=== PATIENT | female | born 1970 | race Caucasian/White ===

== ENCOUNTER 2016-12-15 09:07 | Emergency (ER) | payer OTHER ==
--- NOTE | 2016-12-15 09:11 | PDOC ---
History of Present Illness - General Chief Complaint: Psychiatric Stated Complaint: LIGHTHEADED ANXIETY Time Seen by Provider: 12/15/16 09:09 - History of Present Illness Initial Comments: 12/15/16 09:10 The patient is a 46 year old female with a self reported significant past medical history of anxiety who presents to the emergency department with a 30 minute history of palpatations after she was driving and started feeling lightheaded, then says she got anxious about feeling lightheaded and stopped breathing normally. She reports holding her breath and deep breathing alternatively which caused her to become more dizzy. She then panicked about not being able to immediately caul puller which exacerbated her symptoms. Following this a passerby called the ambulance whereupon she presented to the ER. Ms. Ortiz currently endorses feeling dizzy/light headed. The patient denies chest pain, shortness of breath, and headache. Denies fever, chills, nausea, vomit, diarrhea and constipation. Denies dysuria, frequency, urgency and hematuria. Allergies: NKDA Past surgical history: Breast reduction and Social history: Social drinker / smoker PMD - Dr. Rogers 12/15/16 09:25 Past History - Past Medical History Allergies/Adverse Reactions: Allergies Allergy/AdvReac Type Severity Reaction Status Date / Time No Known Allergies Allergy Verified 12/15/16 09:08 Home Medications: Ambulatory Orders NK [No Known Home Medication] 12/15/16 - Psycho/Social/Smoking Cessation Hx Anxiety: No Suicidal Ideation: No Smoking History: Current some day smoker Number of Cigarettes Smoked Daily: 4 'Breaking Loose' booklet given: 10/28/15 Hx Alcohol Use: No Drug/Substance Use Hx: No Substance Use Type: None Review of Systems - Review of Systems Comments:: 12/15/16 09:11 GENERAL/CONSTITUTIONAL: No fever or chills. No weakness. HEAD, EYES, EARS, NOSE AND THROAT: No change in vision. No ear pain or discharge. No sore throat. CARDIOVASCULAR: No chest pain or shortness of breath RESPIRATORY: No cough, wheezing, or hemoptysis. GASTROINTESTINAL: No nausea, vomiting, diarrhea or constipation. GENITOURINARY: No dysuria, frequency, or change in urination. MUSCULOSKELETAL: No joint or muscle swelling or pain. No neck or back pain. SKIN: No rash NEUROLOGIC: No headache, vertigo, loss of consciousness, or change in strength/ sensation. ENDOCRINE: No increased thirst. No abnormal weight change HEMATOLOGIC/LYMPHATIC: No anemia, easy bleeding, or history of blood clots. ALLERGIC/IMMUNOLOGIC: No hives or skin allergy. 12/15/16 09:30 *Physical Exam - Physical Exam Comments: 12/15/16 09:11 GENERAL: Awake, alert, and fully oriented, in no acute distress HEAD: No signs of trauma, normocephalic, atraumatic EYES: PERRLA, EOMI, sclera anicteric, conjunctiva clear ENT: Auricles normal inspection, hearing grossly normal, nares patent, oropharynx clear without exudates. Moist mucosa NECK: Normal ROM, supple, no lymphadenopathy, JVD, or masses LUNGS: No distress, speaks full sentences, clear to auscultation bilaterally HEART: Regular rate and rhythm, normal S1 and S2, no murmurs, rubs or gallops, peripheral pulses normal and equal bilaterally. ABDOMEN: Soft, nontender, normoactive bowel sounds. No guarding, no rebound. No masses EXTREMITIES: Normal inspection, Normal range of motion, no edema. No clubbing or cyanosis. NEUROLOGICAL: Cranial nerves II through XII grossly intact. Normal speech, normal gait, no focal sensorimotor deficits SKIN: Warm, Dry, normal turgor, no rashes or lesions noted. 12/15/16 09:44 Medical Decision Making - Medical Decision Making 12/15/16 09:44 Ms. Ortiz presents with anxiety and classic panic attack symptoms. She denies any prior hospitalization for psychiatric illness. Denies any depression or current major stressors in life. Lives with and 3 children. She has seen a psychiatrist about this many years ago and tried wellbutrin but was unable to control the symptoms. Denies any thoughts of harming self or others or suicidal ideation. Will give Xanax 250mg to control symptoms. *DC/Admit/Observation/Transfer Diagnosis at time of Disposition: Panic attack - Discharge Dispostion Disposition: HOME Condition at time of disposition: Stable - Referrals Referrals: Vandana Stone MD [Staff Physician] - - Patient Instructions Printed Discharge Instructions: DI for Panic Disorder - Attestations Physician Attestion: 12/15/16 10:41 I, Dr. Lizandro Alejandra, attest that this document has been prepared under my direction and personally reviewed by me in its entirety. I further attest, that it accurately reflects all work, treatment, procedures and medical decision -making performed by me.
[2016-12-15 09:17] VITALS: TEMP 98.5; BMI 26.5
--- NOTE | 2016-12-15 09:32 | PDOC ---
Attending Attestation - Resident Resident Name: Lizandro Alejandra - ED Attending Attestation I have performed the following: I have examined & evaluated the patient <Lizandro Alejandra - Last Filed: 12/15/16 11:08> - HPI HPI: 12/15/16 09:44 Patient became anxious while driving to work this morning. She pulled off the road to try and relax. She has a history of anxiety and panic attacks, however, is undergoing no treatment at present. She briefly saw a psychiatrist in the past for anxiety, was prescribed Wellbutrin, took it for a short period of time but did not continue. She denies any history of depression, suicidal or homicidal ideations, attempted suicide, or psychiatric hospitalizations. There is no particular stress in her life at present that seems to be precipitating her anxiety. 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 She is with 2 children at home. There is no job or home stress. There is no history of substance abuse. Physical exam is entirely negative, other than mild to moderate anxiety. She requests some medication to help her calm down, and will call a friend to accompany her home. She agrees to seek therapy as soon as possible. Return to the emergency room if symptoms worsen. - Physicial Exam PE: 12/15/16 11:27 Physical exam entirely normal except for - Medical Decision Making 12/15/16 09:49 Assessment: Chronic anxiety, panic attacks, inadequate treatment. No overt depression or suicidal ideations Plan: Anxiolytic. Refer psychiatry. Deep breathing and other relaxation techniques reviewed. Fully ambulatory and much more calm at discharge to follow- up as directed. <Brendan Foley - Last Filed: 12/15/16 11:28>
[2016-12-15] MEDS ORDERED: ALPRAZolam 0.25 MG TABLET PO ONE (09:43)
[2016-12-15] MEDS ORDERED: ALPRAZolam 0.25 MG TABLET ONE (09:46)
[2016-12-15 10:31] VITALS: BP 136/80; PULSE 90
== END 2016-12-15 11:07 | disposition home or self-care (01) ==
LOC: FER 09:07
DX: F41.0 Panic disorder [episodic paroxysmal anxiety] (principal); F17.210 Nicotine dependence, cigarettes, uncomplicated
CPT/HCPCS: 99281-25

== ENCOUNTER 2017-10-11 19:13 | Inpatient (IN) | payer OTHER ==
[2017-10-11 19:19] VITALS: BMI 24.4
--- NOTE | 2017-10-11 19:26 | PDOC ---
History of Present Illness - General History Source: Patient Exam Limitations: No Limitations - History of Present Illness Initial Comments: 10/11/17 19:58 The patient is a 47 year old female with a significant PMH of anxiety who presents to the emergency department with severe left breast cellulitis for 1 week.The patient reports that she had a breast reduction 20 years ago. She reports that since then her left breast has been infected 2 times. The patient reports that she went to urgent care 9 days ago by which she was given augmentin with no apparent relief. She reports that her symptoms continued and she returned to Urgent care 2 days ago where her antibiotics were changed to keflex. The patient reports that since then, she has noticed an increase in swelling redness and pain in her left breast. The patient denies any other symptoms. She denies any Chest pain, shortness of breath, headache and dizziness. She denies fever, chills, nausea, vomit, diarrhea, constipation or urinary complications. The patient denies any other complaints. Allergies: NKA Past surgical history: Breast reduction (20 years ago) Social history: social drinker and cigarette smoker PCP: Dr. Woo <Christina Armendariz - Last Filed: 10/11/17 20:09> <Nora Hernandez - Last Filed: 10/12/17 04:30> - General Chief Complaint: Wound Stated Complaint: CELLULITIS L BREAST Time Seen by Provider: 10/11/17 19:22 Past History <Christina Armendariz - Last Filed: 10/11/17 20:09> - Past Medical History COPD: No - Suicide/Smoking/Psychosocial Hx Smoking History: Current some day smoker Have you smoked in the past 12 months: Yes Number of Cigarettes Smoked Daily: 4 Information on smoking cessation initiated: Yes 'Breaking Loose' booklet given: 10/11/17 Hx Alcohol Use: No Drug/Substance Use Hx: No Substance Use Type: None <Nora Hernandez - Last Filed: 10/12/17 04:30> - Past Medical History Allergies/Adverse Reactions: Allergies Allergy/AdvReac Type Severity Reaction Status Date / Time No Known Allergies Allergy Verified 12/15/16 09:08 Home Medications: Ambulatory Orders Cephalexin [Keflex] 500 mg PO DAILY 10/11/17 Review of Systems - Review of Systems Able to Perform ROS?: Yes Comments:: 10/11/17 19:58 GENERAL/CONSTITUTIONAL: No fever or chills. No weakness. HEAD, EYES, EARS, NOSE AND THROAT: No change in vision. No ear pain or discharge. No sore throat. CARDIOVASCULAR: No chest pain or shortness of breath. RESPIRATORY: No cough, wheezing, or hemoptysis. GASTROINTESTINAL: No nausea, vomiting, diarrhea or constipation. GENITOURINARY: No dysuria, frequency, or change in urination. MUSCULOSKELETAL: No joint or muscle swelling or pain. No neck or back pain. SKIN: (+)severe left breast cellulitis NEUROLOGIC: No headache, vertigo, loss of consciousness, or change in strength/ sensation. ENDOCRINE: No increased thirst. No abnormal weight change. HEMATOLOGIC/LYMPHATIC: No anemia, easy bleeding, or history of blood clots. ALLERGIC/IMMUNOLOGIC: No hives or skin allergy. <Christina Armendariz - Last Filed: 10/11/17 20:09> *Physical Exam - Vital Signs Last Vital Signs Temp Pulse Resp BP Pulse Ox 98.3 F 108 H 14 107/78 100 10/11/17 19:16 10/11/17 19:16 10/11/17 19:16 10/11/17 19:16 10/11/17 19:16 - Physical Exam Comments: 10/11/17 19:59 GENERAL: Awake, alert, and fully oriented, in no acute distress HEAD: No signs of trauma EYES: PERRLA, EOMI, sclera anicteric, conjunctiva clear ENT: Auricles normal inspection, hearing grossly normal, nares patent, oropharynx clear without exudates. Moist mucosa NECK: Normal ROM, supple, no lymphadenopathy, JVD, or masses LUNGS: Breath sounds equal, clear to auscultation bilaterally. No wheezes, and no crackles HEART: Regular rate and rhythm, normal S1 and S2, no murmurs, rubs or gallops ABDOMEN: Soft, nontender, normoactive bowel sounds. No guarding, no rebound. No masses EXTREMITIES: Normal range of motion, no edema. No clubbing or cyanosis. No cords, erythema, or tenderness NEUROLOGICAL: Cranial nerves II through XII grossly intact. Normal speech, normal gait SKIN: (+) [id number] erythematous indurated carrie=dly tender are of midline inferior aspect of left breast surrounded by 3 cm border of mild erythema and tenderness. No discharge evident . mild fluctuance at base of inducted area at old suture line. No nipple damage noted. No chest wall tenderness. <Christina Armendariz - Last Filed: 10/11/17 20:09> - Vital Signs Last Vital Signs Temp Pulse Resp BP Pulse Ox 98.3 F 108 H 14 107/78 100 10/11/17 19:16 10/11/17 19:16 10/11/17 19:16 10/11/17 19:16 10/11/17 19:16 <Nora Hernandez - Last Filed: 10/12/17 04:30> ED Treatment Course - LABORATORY CBC & Chemistry Diagram: 10/11/17 20:02 10/11/17 20:02 <Christina Armendariz - Last Filed: 10/11/17 20:09> - LABORATORY CBC & Chemistry Diagram: 10/11/17 20:02 10/11/17 20:02 <Nora Hernandez - Last Filed: 10/12/17 04:30> Medical Decision Making - Medical Decision Making Documentation has been prepared under my direction and personally reviewed by me in its entirety. I attest that this documented accurately reflects all work, treatment, procedures and medical decision making performed by me. As noted above, this 47-year-old woman with a history of recurrent cellulitis in the left breast, after breast reduction surgery approximately 20 years ago presents with approximately 10 day history of infectious process in the usual area of cellulitis in the left breast. The infection appears to be progressing despite Augmentin, then Keflex course. Exam as noted. Although the patient does not have clinical or laboratory direct evidence of systemic infection, she has clearly failed outpatient oral antibiotic treatment. Vancomycin 1 g IV was administered after laboratory treatment/blood culture/ wound culture(area of old suture line swabbed) Case discussed with RAMESH Almaraz. Patient admitted, Dr. Gustafson service for further evaluation and treatment. <Nora Hernandez - Last Filed: 10/12/17 04:30> *DC/Admit/Observation/Transfer - Attestations Scribe Attestion: 10/11/17 19:59 Documentation prepared by Christina Armendariz, acting as medical service technician for Nora Hernandez MD. <Christina Armendariz - Last Filed: 10/11/17 20:09> - Discharge Dispostion Decision to Admit order: Yes <Nora Hernandez - Last Filed: 10/12/17 04:30> Diagnosis at time of Disposition: Cellulitis of left breast - Discharge Dispostion Condition at time of disposition: Stable
[2017-10-11] MEDS ORDERED: SODIUM CHLORIDE 1,000 ML IV STA (19:41)
[2017-10-11] MEDS ORDERED: KETOROLAC TROMETHAMINE 30 MG/1 ML VIAL IVPUSH ONE (19:41)
[2017-10-11] MEDS ORDERED: VANCOMYCIN 1 GRAM (PRE-DOCKED) 1,000 MG/250 ML BAG IVPB ONE (20:05)
[2017-10-11] MEDS ORDERED: KETOROLAC TROMETHAMINE 30 MG/1 ML VIAL ONE (20:11)
[2017-10-11] MEDS ORDERED: VANCOMYCIN 1,000 MG VIAL (RESTRICTED TO ID ONLY) ONE (20:12)
[2017-10-11 20:24] LABS: HCG,QUALITATIVE URINE Negative
[2017-10-11 20:26] LABS: ALBUMIN 3.6 g/dl (3.5-5.0); ALK PHOS 99 U/L (32-92); ANION GAP 6 (8-16); BILIRUBIN,TOTAL 0.1 mg/dl (0.2-1.0); BLOOD UREA NITROGEN 6 mg/dl (7-18); CHLORIDE 104 mmol/L (98-107); CO2 23 mmol/L (22-28); GLUCOSE,RANDOM 118 mg/dl (74-106); POTASSIUM 3.6 mmol/L (3.5-5.1); SGOT/AST 28 U/L (10-42); SGPT/ALT 19 U/L (10-40); SODIUM 133 mmol/L (136-145); TOT PROT 6.8 g/dl (6.4-8.3)
[2017-10-11 20:42] LABS: CREATININE < 0.8 mg/dl (0.6-1.3)
[2017-10-11 20:55] LABS: PH,URINE 6.5 (4.5-8); URINE APPEARANCE Clear; URINE BILIRUBIN Negative (NEGATIVE); URINE GLUCOSE (UA) Negative (NEGATIVE); URINE KETONE Negative (NEGATIVE); URINE NITRITE Negative (NEGATIVE); URINE PROTEIN Negative (NEGATIVE); URINE UROBILINOGEN 0.2 (0.2-1.0)
[2017-10-11 20:56] LABS: URINE BLOOD Trace-intact (NEGATIVE); URINE COLOR YELLOW; URINE LEUK ESTERASE TRACE (NEGATIVE)
[2017-10-11 21:01] LABS: BASO % 0.6 % (0-2.0); EOS % 1.9 % (0-4.5); HEMATOCRIT 36.9 % (32.4-45.2); HEMOGLOBIN 12.4 GM/dl (10.7-15.3); LYMPH % 17.1 % (8-40); MCH 32.5 pg (25.7-33.7); MCHC 33.7 g/dl (32.0-36.0); MEAN CELL VOLUME 96.2 fl (80-96); MEAN PLT VOLUME 8.7 fl (7.5-11.1); NEUT % 71.4 % (42.8-82.8); PLATELET COUNT 325 K/MM3 (134-434); RBC 3.84 M/mm3 (3.60-5.2); RDW 13.1 % (11.6-15.6); WHITE BLOOD COUNT 8.3 K/mm3 (4.0-10.8)
[2017-10-11 22:11] LABS: EPI CELLS FEW /HPF; URINE BACTERIA NONE SEEN /hpf (NEGATIVE); URINE RBC 0-3 /hpf (0-3); URINE WBC 0-3 (0-5)
[2017-10-11] MEDS ORDERED: PIPERACILLIN/TAZOB 3.375 GM 3.375 GM in DEXTROSE 5%-WATER - 50 ML IVPB ONE (22:15)
[2017-10-11] MEDS ORDERED: PIPERACILLIN/TAZOBACTAM 3.375 GM VIAL IVPB ONE (22:18)
--- NOTE | 2017-10-12 00:01 | HP ---
CHIEF COMPLAINT: cellulitis L breast PCP: Amna HISTORY OF PRESENT ILLNESS: This is a 47 year old female with a significant past medical history of breast reduction 20 years ago with subsequent L breast cellulitis x 2 episodes who presented to the ED with redness, swelling and pain to left breast. SHe was evaluated at urgent care 9 days ago and placed on augmentin. She returned 2 days ago as the cellulitis was not improving and her antibiotic was changed to keflex. She reported to the ED today as the pain and swelling have gotten worse. ER course was notable for: (1) WBC 8.3 (2) afebrile Recent Travel: pt denies PAST MEDICAL HISTORY: L breast cellulitis, anxiety PAST SURGICAL HISTORY: B/L breast reduction 20y ago Social History: Smokin cig/day Alcohol: "couple of drinks 4x per week" Drugs: pt denies Family History: mother age 63, esophageal CA, complication after surgery including MRSA father alive with dementia and parkinson's disease one brother s/p OD 3 other siblings no medical problems Allergies No Known Allergies Allergy (Verified 12/15/16 09:08) HOME MEDICATIONS: 3 Medication Instructions Recorded Cephalexin [Keflex] 500 mg PO DAILY 10/11/17 REVIEW OF SYSTEMS CONSTITUTIONAL: Absent: fever, chills, diaphoresis, generalized weakness, malaise, loss of appetite, weight change HEENT: Absent: rhinorrhea, nasal congestion, throat pain, throat swelling, difficulty swallowing, mouth swelling, ear pain, eye pain, visual changes CARDIOVASCULAR: Absent: chest pain, syncope, palpitations, irregular heart rate, lightheadedness , peripheral edema RESPIRATORY: Absent: cough, shortness of breath, dyspnea with exertion, orthopnea, wheezing, stridor, hemoptysis GASTROINTESTINAL: Absent: abdominal pain, abdominal distension, nausea, vomiting, diarrhea, constipation, melena, hematochezia GENITOURINARY: Absent: dysuria, frequency, urgency, hesitancy, hematuria, flank pain, genital pain MUSCULOSKELETAL: Absent: myalgia, arthralgia, joint swelling, back pain, neck pain SKIN: Present: L breast erythema, pain, swelling Absent: rash, itching, pallor HEMATOLOGIC/IMMUNOLOGIC: Absent: easy bleeding, easy bruising, lymphadenopathy, frequent infections ENDOCRINE: Absent: unexplained weight gain, unexplained weight loss, heat intolerance, cold intolerance NEUROLOGIC: Absent: headache, focal weakness or paresthesias, dizziness, unsteady gait, seizure, mental status changes, bladder or bowel incontinence PSYCHIATRIC: Absent: anxiety, depression, suicidal or homicidal ideation, hallucinations. PHYSICAL EXAMINATION Vital Signs - 24 hr 3 10/11/17 10/11/17 19:16 22:44 Temperature 98.3 F Pulse Rate 108 H Pulse Rate [ 87 Right Radial] Respiratory 14 14 Rate Blood Pressure 107/78 Blood Pressure 110/71 [Left Arm] O2 Sat by Pulse 100 100 Oximetry (%) GENERAL: Awake, alert, and fully oriented, in no acute distress. HEAD: Normal with no signs of trauma. EYES: Pupils equal, round and reactive to light, extraocular movements intact, sclera anicteric, conjunctiva clear. No lid lag. EARS, NOSE, THROAT: Ears normal, nares patent, oropharynx clear without exudates. Moist mucous membranes. NECK: Normal range of motion, supple without lymphadenopathy, JVD, or masses. LUNGS: Breath sounds equal, clear to auscultation bilaterally. No wheezes, and no crackles. No accessory muscle use. HEART: Regular rate and rhythm, normal S1 and S2 without murmur, rub or gallop. ABDOMEN: Soft, nontender, not distended, normoactive bowel sounds, no guarding, no rebound, no masses. No hepatomegaly or splenomegaly. MUSCULOSKELETAL: Normal range of motion at all joints. No bony deformities or tenderness. No CVA tenderness. UPPER EXTREMITIES: 2+ pulses, warm, well-perfused. No cyanosis. No clubbing. No peripheral edema. LOWER EXTREMITIES: 2+ pulses, warm, well-perfused. No calf tenderness. No peripheral edema. NEUROLOGICAL: Cranial nerves II-XII intact. Normal speech. Normal gait. PSYCHIATRIC: Cooperative. Good eye contact. Appropriate mood and affect. SKIN: Warm, dry, normal turgor, no rashes or lesions noted, normal capillary refill. L breast with erythema from 5 oclock to 8 oclock, central area fluctant , edges indurated, no discharge or open area at present. Laboratory Results - last 24 hr 3 10/11/17 10/11/17 10/11/17 20:00 20:02 20:02 WBC 8.3 RBC 3.84 Hgb 12.4 Hct 36.9 MCV 96.2 H MCH 32.5 MCHC 33.7 RDW 13.1 Plt Count 325 MPV 8.7 Neutrophils % 71.4 Lymphocytes % 17.1 Monocytes % 9.0 Eosinophils % 1.9 Basophils % 0.6 Sodium 133 L Potassium 3.6 Chloride 104 Carbon Dioxide 23 Anion Gap 6 L BUN 6 L D Creatinine < 0.8 D Creat Clearance w eGFR > 60 Random Glucose 118 H Lactic Acid Cancelled Calcium 9.0 Total Bilirubin 0.1 L D AST 28 D ALT 19 Alkaline Phosphatase 99 H D Total Protein 6.8 Albumin 3.6 Urine Color Urine Appearance Urine pH Ur Specific [place] Urine Protein Urine Glucose (UA) Urine Ketones Urine Blood Urine Nitrite Urine Bilirubin Urine Urobilinogen Ur Leukocyte Esterase Urine RBC Urine WBC Ur Epithelial Cells Urine Bacteria Urine HCG, Qual 3 10/11/17 20:02 WBC RBC Hgb Hct MCV MCH MCHC RDW Plt Count MPV Neutrophils % Lymphocytes % Monocytes % Eosinophils % Basophils % Sodium Potassium Chloride Carbon Dioxide Anion Gap BUN Creatinine Creat Clearance w eGFR Random Glucose Lactic Acid Calcium Total Bilirubin AST ALT Alkaline Phosphatase Total Protein Albumin Urine Color Yellow Urine Appearance Clear Urine pH 6.5 Ur Specific [place] <= 1.005 Urine Protein Negative Urine Glucose (UA) Negative Urine Ketones Negative Urine Blood Trace-intact H Urine Nitrite Negative Urine Bilirubin Negative Urine Urobilinogen 0.2 Ur Leukocyte Esterase Trace H Urine RBC 0-3 Urine WBC 0-3 Ur Epithelial Cells Few Urine Bacteria None seen Urine HCG, Qual Negative ASSESSMENT/PLAN: 47yF with PMH anxiety, L breast cellulitis presented to the ED with redness, pain and swelling of left breast for 11 days. Left breast cellulitis - failed outpatient management - given vanc and zosyn in the ED - cont same - ID consult - breast surgeon consult DVT PPX - heparin 5000u BID FEN - tolerating po - BMP in am - regular diet as tolerated Dispo: Pt currently requires further inpatient management of her emergent condition. Visit type - Emergency Visit Emergency Visit: Yes ED Registration Date: 10/11/17 Care time: The patient presented to the Emergency Department on the above date and was hospitalized for further evaluation of their emergent condition. - New Patient This patient is new to me today: Yes Date on this admission: 10/11/17 - Critical Care Critical Care patient: No Hospitalist Screening - Colonoscopy Questionnaire Colonoscopy Questionnaire: Colonoscopy Questionnaire - Patient: 50 - 75 years old and never had a screening colonoscopy: No History of colon or rectal polyps, or CA: No History of IBD, Crohn's disease or UC: No History of abdominal radiation therapy as a child: No - Relative: 1 with colon or rectal CA, or polyps at age 60 or younger: No Colon or rectal CA diagnosed at age 45 or younger: No Multiple relatives with colon or rectal CA: No - Outcome: Screening Result: Negative Screen
[2017-10-12] MEDS ORDERED: PIPERACILLIN/TAZOBACTAM 3.375 GM VIAL IVPB ONE (02:12)
[2017-10-12] MEDS ORDERED: PIPERACILLIN/TAZOB 3.375 GM 3.375 GM/50 ML BAG IVPB ONE (04:00)
[2017-10-12] MEDS ORDERED: KETOROLAC TROMETHAMINE 30 MG/1 ML VIAL IVPUSH ONE (04:05)
[2017-10-12] MEDS ORDERED: KETOROLAC TROMETHAMINE 30 MG/1 ML VIAL ONE (04:06)
[2017-10-12 06:59] VITALS: BP 108/63; TEMP 98.9
[2017-10-12 07:50] LABS: BASO % 0.6 % (0-2.0); EOS % 2.7 % (0-4.5); HEMATOCRIT 34.9 % (32.4-45.2); HEMOGLOBIN 11.6 GM/dl (10.7-15.3); LYMPH % 15.8 % (8-40); MCH 31.7 pg (25.7-33.7); MCHC 33.1 g/dl (32.0-36.0); MEAN CELL VOLUME 95.6 fl (80-96); MEAN PLT VOLUME 8.5 fl (7.5-11.1); MONO % 8.6 % (3.8-10.2); NEUT % 72.3 % (42.8-82.8); PLATELET COUNT 322 K/MM3 (134-434); RBC 3.65 M/mm3 (3.60-5.2); RDW 12.8 % (11.6-15.6); WHITE BLOOD COUNT 7.7 K/mm3 (4.0-10.8)
[2017-10-12 07:54] VITALS: PULSE 88
--- NOTE | 2017-10-12 08:10 | PN ---
Physical Exam: SUBJECTIVE: Patient seen and examined,ambulatory throughout nursing unit, denies any tactile fever, reports pain to left breast OBJECTIVE: Patient is a 47 y/o female with no significant history, patient has a significant surgical history of breast reduction with revision 20 years ago and left breast cellulitis. patient was admitted from the emergency department for left breast cellulitis after failing outpatient therapy. Vital Signs Period Temp Pulse Resp BP Sys/Tan Pulse Ox Last 24 Hr 98.3 F-98.9 F 79-108 14-16 107-110/63-78 100-100 GENERAL: The patient is awake, alert, and fully oriented, in no acute distress. HEAD: Normal with no signs of trauma. EYES: PERRL, extraocular movements intact, sclera anicteric, conjunctiva clear. No ptosis. ENT: Ears normal, nares patent, oropharynx clear without exudates, moist mucous membranes. NECK: Trachea midline, full range of motion, supple. LUNGS: Breath sounds equal, clear to auscultation bilaterally, no wheezes, no crackles, no accessory muscle use. HEART: Regular rate and rhythm, S1, S2 without murmur, rub or gallop. ABDOMEN: Soft, nontender, nondistended, normoactive bowel sounds, no guarding, no rebound, no hepatosplenomegaly, no masses. EXTREMITIES: 2+ pulses, warm, well-perfused, no edema. NEUROLOGICAL: Cranial nerves II through XII grossly intact. Normal speech, gait not observed. PSYCH: Normal mood, normal affect. SKIN: left breast, erythema and induraition, fluctance noted to the 5:oo position of left breast no drainage noted. Warm, dry, normal turgor, no rashes or lesions noted Laboratory Results - last 24 hr 10/11/17 10/11/17 10/11/17 20:00 20:02 20:02 WBC 8.3 RBC 3.84 Hgb 12.4 Hct 36.9 MCV 96.2 H MCH 32.5 MCHC 33.7 RDW 13.1 Plt Count 325 MPV 8.7 Neutrophils % 71.4 Lymphocytes % 17.1 Monocytes % 9.0 Eosinophils % 1.9 Basophils % 0.6 Sodium 133 L Potassium 3.6 Chloride 104 Carbon Dioxide 23 Anion Gap 6 L BUN 6 L D Creatinine < 0.8 D Creat Clearance w eGFR > 60 Random Glucose 118 H Lactic Acid Cancelled Calcium 9.0 Total Bilirubin 0.1 L D AST 28 D ALT 19 Alkaline Phosphatase 99 H D Total Protein 6.8 Albumin 3.6 Urine Color Urine Appearance Urine pH Ur Specific [place] Urine Protein Urine Glucose (UA) Urine Ketones Urine Blood Urine Nitrite Urine Bilirubin Urine Urobilinogen Ur Leukocyte Esterase Urine RBC Urine WBC Ur Epithelial Cells Urine Bacteria Urine HCG, Qual 10/11/17 10/11/17 20:02 20:18 WBC RBC Hgb Hct MCV MCH MCHC RDW Plt Count MPV Neutrophils % Lymphocytes % Monocytes % Eosinophils % Basophils % Sodium Potassium Chloride Carbon Dioxide Anion Gap BUN Creatinine Creat Clearance w eGFR Random Glucose Lactic Acid 0.6 Calcium Total Bilirubin AST ALT Alkaline Phosphatase Total Protein Albumin Urine Color Yellow Urine Appearance Clear Urine pH 6.5 Ur Specific [place] <= 1.005 Urine Protein Negative Urine Glucose (UA) Negative Urine Ketones Negative Urine Blood Trace-intact H Urine Nitrite Negative Urine Bilirubin Negative Urine Urobilinogen 0.2 Ur Leukocyte Esterase Trace H Urine RBC 0-3 Urine WBC 0-3 Ur Epithelial Cells Few Urine Bacteria None seen Urine HCG, Qual Negative Active Medications Generic Name Dose Route Start Last Admin Trade Name Freq PRN Reason Stop Dose Admin Heparin Sodium (Porcine) 5,000 unit 10/12/17 10:00 Heparin - SQ BID [facility] ASSESSMENT/PLAN: 1) Left breast cellulitis - vanc/zosyn given in ED, ultrasound of left breast ordered - case discussed with Dr Nugent breast surgeon and ID Dr Guerra at bedside - no leukocystosis noted, patient is afebrile - pending blood cultures DVT PPX - heparin 5000u BID FEN - tolerating po - regular diet as tolerated Dispo: Pt currently requires further inpatient management of her emergent condition.
[2017-10-12] MEDS ORDERED: HEPARIN NA (PORCINE) 5,000 UNITS/ML 1ML VIAL SQ SCH (10:00)
[2017-10-12 10:18] LABS: ANION GAP 6 (8-16); BLOOD UREA NITROGEN 4 mg/dl (7-18); CALCIUM 8.3 mg/dl (8.4-10.2); CHLORIDE 110 mmol/L (98-107); CO2 20 mmol/L (22-28); CREATININE 0.5 mg/dl (0.6-1.3); GLUCOSE,RANDOM 101 mg/dl (74-106); MAGNESIUM 1.8 mg/dL (1.8-2.4); PHOSPHOROUS 3.8 mg/dl (2.5-4.6); POTASSIUM 3.7 mmol/L (3.5-5.1); SODIUM 136 mmol/L (136-145)
--- NOTE | 2017-10-12 10:28 | PN ---
Progress Note (short form) - Note Progress Note: ID Consult dictated Cellulitis L breast R/O abscess Await c/s, ultrasound Continue empiric vancomycin/ zosyn
[2017-10-12] MEDS ORDERED: VANCOMYCIN 1,000 MG in DEXTROSE 5%-WATER - 250 ML IVPB SCH (10:30)
[2017-10-12] MEDS ORDERED: HEPARIN NA (PORCINE) 5,000 UNITS/ML 1ML VIAL ONE (10:35)
[2017-10-12] MEDS ORDERED: IBUPROFEN 600 MG TABLET (FP) PO ONE (11:01)
--- NOTE | 2017-10-12 11:12 | CONSULT ---
Consult Consult Specialty:: Breast Surgery Referred by:: Dr. Yin Reason for Consultation:: left breast abscess/infection - History of Present Illness Chief Complaint: Left breast infection for with pain swelling for 9 days without relief on oral antibiotics History of Present Illness: The patient is a 47 y.o. premenopausal white female with no significant PMH who has a history of a bilateral reduction mastopexy almost 20 years ago. She under went revision surgery soon after the original surgery and had a localized cellulitis which resolved spontaneously at that time. She again developed a localized cellulitis about 5 years ago at which time she supposedly saw me and that also resolved on oral antibiotics. She now has had a recurrent cellutitis of the left breast for almost 9 days and originally was seen at an urgent care center and given augmentin. She continued to have redness and swelling and went back to the urgent care center and her antibiotics were switched to bactrim and keflex. She now presented to the [place] ER with persistent redness, swelling, and pain from this left breast cellutitis. She has been afebrile. - History Source History Provided By: Patient Limitations to Obtaining History: No Limitations - Past Medical History ...LMP Comment: 3 weeks ago ...: No - Past Surgical History Additional Surgical History: Bilateral reduction mastepexy surgery 20 years ago - Alcohol/Substance Use Hx Alcohol Use: No - Smoking History Smoking history: Current some day smoker Have you smoked in the past 12 months: Yes Aproximately how many cigarettes per day: 4 Home Medications - Allergies Allergies/Adverse Reactions: Allergies Allergy/AdvReac Type Severity Reaction Status Date / Time No Known Allergies Allergy Verified 12/15/16 09:08 - Home Medications Home Medications: Ambulatory Orders Cephalexin [Keflex] 500 mg PO DAILY 10/11/17 Family Disease History - Family Disease History Other Family History: Mother from esophageal cancer at age 63. Father had dementia/parkinson's Review of Systems - Review of Systems Constitutional: reports: No Symptoms Eyes: reports: No Symptoms HENT: reports: No Symptoms Neck: reports: No Symptoms Cardiovascular: reports: No Symptoms Respiratory: reports: No Symptoms Gastrointestinal: reports: No Symptoms Genitourinary: reports: No Symptoms Breasts: reports: Other (left breast pain and swelling for 9 days not fully improved on oral antibiotics) Musculoskeletal: reports: No Symptoms Integumentary: reports: No Symptoms Neurological: reports: No Symptoms Endocrine: reports: No Symptoms Psychiatric: reports: No Symptoms Physical Exam Vital Signs: Vital Signs Temperature 98.9 F 10/12/17 07:37 Pulse Rate 88 10/12/17 07:37 Respiratory Rate 16 10/12/17 07:37 Blood Pressure 108/63 10/12/17 07:37 O2 Sat by Pulse Oximetry (%) 100 10/12/17 07:37 Constitutional: Yes: Well Nourished, No Distress, Calm Eyes: Yes: WNL HENT: Yes: Atraumatic, Normocephalic Neck: Yes: WNL Cardiovascular: Yes: Regular Rate and Rhythm Respiratory: Yes: Regular, CTA Bilaterally Gastrointestinal: Yes: Normal Bowel Sounds, Soft ...Rectal Exam: Yes: Deferred Breast(s): Yes: Other (Left breast with redness/tenderness on lower half with significant lower swellin just at prior inframmamary incision) Musculoskeletal: Yes: WNL Neurological: Yes: Alert, Oriented Labs: CBC, BMP 10/12/17 07:15 10/12/17 07:15 Imaging - Results Ultrasound: Other (performed bedside ultrasound using sonosite which showed abscess with debris at lower region of left breast in region of swelling and redness) Problem List - Problems (1) Breast abscess Assessment/Plan: The patient has an obvious left breast abscess not responding to oral antibiotics. She has a normal WBC at 8.3 but ultrasound shows a large abscess with debris which will not respond to simple aspiration. After informed consent , I performed an I&D of the abscess in the ER. I was able to fully drain and debride the abscess sharply with a 10 blade scapel. The cavity was fully irrigated with 50/50 peroxide/saline solution. The procedure was performed under local anesthesia with 2% local lidocaine under sterile conditions and fluid culture were sent to microbacteriology. 1/[address] into the wound. She tolerated the procedure well without difficulty. She will require daily dressing changes and the ER will arrange VNS. She can be discharge home from the ER today with follow up and VNS. She will present to the office tomorrow for her first dressing change. She will remain on Bactriem and Keflex for now. Code(s): N61 - INFLAMMATORY DISORDERS OF BREAST * DO NOT USE * Assessment/Plan Patient with acute right breast abscess not responsive to oral antibiotics. Sharp incision and drainage performed in ER with decompression of large abscess and irrigation and packing of wound. Will arrange VNS and discharge home with dressing changes. Continue oral antibiotics with Bactrim and Keflex. Follow up in my office tomorrow for wound dressing change. Visit type - Emergency Visit Emergency Visit: Yes ED Registration Date: 10/11/17 Care time: The patient presented to the Emergency Department on the above date and was hospitalized for further evaluation of their emergent condition. - New Patient This patient is new to me today: Yes Date on this admission: 10/15/17 - Critical Care Critical Care patient: No
--- NOTE | 2017-10-12 11:15 | CONS ---
INFECTIOUS DISEASE CONSULTATION DATE OF CONSULTATION: DATE OF DICTATION: 10/12/2017 The patient is a 47-year-old female who is evaluated for cellulitis of the left breast. The patient is status post breast reduction surgery approximately 20 years prior to admission. She was seen in the emergency room approximately 2 years ago with a right breast cellulitis which was treated with antibiotics. She now returns with cellulitis of the left breast. Approximately 1 week ago, she developed worsening erythema, warmth, and swelling of the left breast. She was seen in an urgent care center approximately 10 days ago and was prescribed Augmentin. Despite the Augmentin, symptoms progressed. She returned approximately 2 days ago and was given Keflex. She now presents to the emergency room with worsening erythema, warmth, and swelling of the left breast. In the emergency room, patient was afebrile with a normal white blood cell count. There was evidence of left breast cellulitis. Cultures were obtained. She was empirically treated with vancomycin and Zosyn. She denies any traumatic injury to the breast. She reports having revisions in the past, as well as 2 small defects which were present on the inferior aspect of the left breast. She denies any purulent drainage. No high-grade fever or shaking chills. Patient is nondiabetic. PAST MEDICAL HISTORY: Positive for anxiety. ALLERGIES: No known allergies. SOCIAL HISTORY: Lives at home with her significant other. She is a smoker. No history of alcohol abuse or illicit drug use. SYSTEMS REVIEW: Neurologic: No loss of consciousness, seizure activity, focal weakness. Cardiac: Negative chest pain or palpitations. Respiratory: Negative cough or sputum production. Gastrointestinal: Negative vomiting or diarrhea. Genitourinary: Negative for urinary tract infection. LABORATORY DATA: White count 7.7, hematocrit 34.9, platelet count 322. BUN 6, creatinine 0.8, total bilirubin 0.1. Alkaline phosphatase 99, AST 28. Urinalysis: White cells 0-3. Blood cultures are pending. PHYSICAL EXAMINATION: General: She is awake and alert. She is not acutely toxic appearing. Vital Signs: Temperature 98.9; blood pressure 108/63; pulse 88, regular; respirations 16 per minute. HEENT: Sclerae are anicteric. Heart: Sounds S1, S2. Lungs: Clear bilaterally. Abdomen: Soft, nontender. Extremities: Negative for edema. Left Breast: There is confluent erythema involving the inner and outer lower quadrants of the left breast. It is warm to touch and tender. There are 2 defects noted in the skin, one in the lower inner quadrant and one in the lower outer quadrant. There is no purulent drainage noted. There is some induration present in the lower outer quadrant, left breast. No expressible pus. IMPRESSION: 1. Cellulitis of the left breast. 2. Possible breast abscess. 3. Rule out sepsis secondary to skin focus. Await culture results. Sonogram of the breast with possible aspiration if fluid collection present. Empiric antibiotic coverage pending cultures with vancomycin and Zosyn to cover possible resistant skin pathogens including MRSA. Analgesics. Patient seen in the emergency room with Dr. Nugent. Will follow. Thank you for the kind referral. MICHAEL LANDRY M.D. [id number]
--- NOTE | 2017-10-12 13:53 | DS ---
Physical Exam: SUBJECTIVE: Patient seen and examined OBJECTIVE: Vital Signs Period Temp Pulse Resp BP Sys/Tan Pulse Ox Last 24 Hr 98.3 F-98.9 F 79-108 14-16 107-110/63-78 100-100 PHYSICAL EXAM GENERAL: The patient is awake, alert, and fully oriented, in no acute distress. HEAD: Normal with no signs of trauma. EYES: PERRL, extraocular movements intact, sclera anicteric, conjunctiva clear. ENT: Ears normal, nares patent, oropharynx clear without exudates, moist mucous membranes. NECK: Trachea midline, full range of motion, supple. LUNGS: Breath sounds equal, clear to auscultation bilaterally, no wheezes, no crackles, no accessory muscle use. HEART: Regular rate and rhythm, S1, S2 without murmur, rub or gallop. ABDOMEN: Soft, nontender, nondistended, normoactive bowel sounds, no guarding, no rebound, no hepatosplenomegaly, no masses. EXTREMITIES: 2+ pulses, warm, well-perfused, no edema. NEUROLOGICAL: Cranial nerves II through XII grossly intact. Normal speech, gait not observed. PSYCH: Normal mood, normal affect. SKIN: Warm, dry, normal turgor, no rashes or lesions noted. LABS Laboratory Results - last 24 hr 10/11/17 10/11/17 10/11/17 20:00 20:02 20:02 WBC 8.3 RBC 3.84 Hgb 12.4 Hct 36.9 MCV 96.2 H MCH 32.5 MCHC 33.7 RDW 13.1 Plt Count 325 MPV 8.7 Neutrophils % 71.4 Lymphocytes % 17.1 Monocytes % 9.0 Eosinophils % 1.9 Basophils % 0.6 Sodium 133 L Potassium 3.6 Chloride 104 Carbon Dioxide 23 Anion Gap 6 L BUN 6 L D Creatinine < 0.8 D Creat Clearance w eGFR > 60 Random Glucose 118 H Lactic Acid Cancelled Calcium 9.0 Phosphorus Magnesium Total Bilirubin 0.1 L D AST 28 D ALT 19 Alkaline Phosphatase 99 H D Total Protein 6.8 Albumin 3.6 Urine Color Urine Appearance Urine pH Ur Specific [place] Urine Protein Urine Glucose (UA) Urine Ketones Urine Blood Urine Nitrite Urine Bilirubin Urine Urobilinogen Ur Leukocyte Esterase Urine RBC Urine WBC Ur Epithelial Cells Urine Bacteria Urine HCG, Qual 10/11/17 10/11/17 10/12/17 20:02 20:18 07:15 WBC 7.7 RBC 3.65 Hgb 11.6 Hct 34.9 MCV 95.6 MCH 31.7 MCHC 33.1 RDW 12.8 Plt Count 322 MPV 8.5 Neutrophils % 72.3 Lymphocytes % 15.8 Monocytes % 8.6 Eosinophils % 2.7 Basophils % 0.6 Sodium Potassium Chloride Carbon Dioxide Anion Gap BUN Creatinine Creat Clearance w eGFR Random Glucose Lactic Acid 0.6 Calcium Phosphorus Magnesium Total Bilirubin AST ALT Alkaline Phosphatase Total Protein Albumin Urine Color Yellow Urine Appearance Clear Urine pH 6.5 Ur Specific [place] <= 1.005 Urine Protein Negative Urine Glucose (UA) Negative Urine Ketones Negative Urine Blood Trace-intact H Urine Nitrite Negative Urine Bilirubin Negative Urine Urobilinogen 0.2 Ur Leukocyte Esterase Trace H Urine RBC 0-3 Urine WBC 0-3 Ur Epithelial Cells Few Urine Bacteria None seen Urine HCG, Qual Negative 10/12/17 07:15 WBC RBC Hgb Hct MCV MCH MCHC RDW Plt Count MPV Neutrophils % Lymphocytes % Monocytes % Eosinophils % Basophils % Sodium 136 Potassium 3.7 Chloride 110 H Carbon Dioxide 20 L Anion Gap 6 L BUN 4 L D Creatinine 0.5 L D Creat Clearance w eGFR Random Glucose 101 Lactic Acid Calcium 8.3 L Phosphorus 3.8 Magnesium 1.8 Total Bilirubin AST ALT Alkaline Phosphatase Total Protein Albumin Urine Color Urine Appearance Urine pH Ur Specific [place] Urine Protein Urine Glucose (UA) Urine Ketones Urine Blood Urine Nitrite Urine Bilirubin Urine Urobilinogen Ur Leukocyte Esterase Urine RBC Urine WBC Ur Epithelial Cells Urine Bacteria Urine HCG, Qual HOSPITAL COURSE: Date of Admission:10/11/17 Date of Discharge: 10/12/17 Minutes to complete discharge: 45 Discharge Summary Reason For Visit: CELLULITIS L BREAST Current Active Problems Cellulitis of left breast (Acute) Condition: Stable - Instructions Referrals: Bobby Nugent MD [Staff Physician] - Marcelina Woo MD [Primary Care Provider] - - Home Medications Comprehensive Discharge Medication List: Ambulatory Orders Cephalexin [Keflex] 500 mg PO DAILY 10/11/17
[2017-10-12] MEDS ORDERED: PIPERACILLIN/TAZOB 3.375 GM 3.375 GM in DEXTROSE 5%-WATER - 50 ML IVPB SCH (18:00)
== END 2017-10-12 14:20 | disposition home or self-care (01) | DRG 601 ==
LOC: FER 19:13 → FM/S 22:35 → UNDOADMIN 10-12 02:46 → FM/S 10-12 02:46
PROVIDERS: ADMIT Internal Medicine; ATTEND Nurse Practitioner Family
PROC: 0H9U0ZZ Drainage of Left Breast, Open Approach (ICD-10-PCS; principal; 2017-10-11)
DX: N61.1 Abscess of the breast and nipple (principal); Z72.0 Tobacco use
CPT/HCPCS: 36415; 80048; 80053; 81003; 81015; 83605; 83735; 84100; 84703; 85025; 87040; 87070; 87076; 87205; 99284-25; J7030

== ENCOUNTER 2021-08-27 07:52 | Emergency (ER) | payer OTHER ==
[2021-08-27 08:02] VITALS: BP 110/78; PULSE 104; TEMP 98.8; BMI 26.2
== END 2021-08-27 11:26 | disposition home or self-care (01) ==
LOC: FER 07:52
DX: S89.91XA Unspecified injury of right lower leg, initial encounter (principal); W19.XXXA Unspecified fall, initial encounter
CPT/HCPCS: 73552-TC-RT-FY; 73562-TC-RT-FY; 99284-25